=== PATIENT | male | born 1960 | race Caucasian/White ===

== ENCOUNTER → 2016-09-08 | Outpatient (CLI) | payer BC ==
[2016-09-08 14:45] VITALS: BP 125/78; PULSE 75; RESP 16; TEMP 97.8
--- NOTE | 2016-09-08 15:05 | P.PN ---
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 Patient underwent R SGB several months ago, which provided some relief for 6-7 weeks' interval apiece. Patient continues on Ace medications for pain from Dr. Hernández with good relief. Patient denies adverse drug effects from medications. Today, pt denies new-onset weakness, bowel/bladder incontinence, or any other signs or symptoms of cauda equina syndrome. There are no signs of acute intoxication, and no indications of medication diversion or overuse. In addition to above, 13-point review of systems is also negative for chest pain , shortness of breath, changes in vision, changes in hearing, new onset weakness , abdominal pain, diarrhea, extreme fatigue, malaise, fever, skin changes, homicidal or suicidal ideation, or bowel or bladder incontinence. Vital Signs: Reviewed in EMR Gen: WDWN, AAOx3, NAD HEENT: NCAT, EOMI, hearing grossly normal Pulm: resp unlabored Abd: soft, NT, ND Neck: supple, trachea midline Upper extremity: decreased sustainability officer strength; allodynia and hyperalgesia RUE Neuro: CN II-XII grossly intact, muscle strength lower extremities PRESERVED Imaging: Reviewed in EMR Assessment: 1. RUE CRPS 2. chronic pain syndrome 3. cervical radiculopathy Plan: 1. Explanation: Opioid and psychological risk scores were reviewed. Diagnoses , prognoses, and multiple treatment options including but not limited to physical therapy, interventional therapies, adjuvant medical therapies, narcotic medication therapies, and surgery were discussed with the patient and all questions were answered to the patient's satisfaction. 2. Opioid agreement: no opioids prescribed today 3. Counseling: The patient was counseled extensively on BODY MASS INDEX, EXERCISE. Specifically, the patient was instructed regarding the importance of weight control and exercise in the context of both chronic pain and overall health. 4. Procedures: R stellate ganglion block (U/S vs. fluoro) 5. Consultations: None 6. Investigations: None 7. Medications: none prescribed 8. Disposition: f/u for procedure as scheduled PQRS measures: 1-Patient's medications are documented in the chart. 2-Tobacco use is negative 3-Patient has not had a pneumococcal vaccine. 4-Advanced care planning discussed, patient unable to give. 5-Opioid contract NOT signed with the patient. 6-Pain positive, follow-up visit or procedure scheduled 7-Patient's blood pressure measured and documented, and patient will follow up with the primary care due to hypertension. 8-Patient's weight was measured, and body mass index ABOVE the normal limits, and counseling was done. Patient instructed to follow up with PCP. 9-Patient WAS NOT identified as an unhealthy alcohol user.
== END ==
LOC: PNWHC3 14:25
PROVIDERS: ATTEND Anesthesiology
DX: M79.601 Pain in right arm (principal); G90.511 Complex regional pain syndrome I of right upper limb; G89.4 Chronic pain syndrome; M54.12 Radiculopathy, cervical region; Z79.891 Long term (current) use of opiate analgesic
CPT/HCPCS: 99211

== ENCOUNTER 2016-10-14 07:23 | Day surgery (SDC) | payer BC ==
[2016-10-10 12:45] VITALS: BMI 27.2
[2016-10-14] MEDS ORDERED: LIDOCAINE 1% 20 ML VIAL (10MG/ML) FOR IV START INTRADERMA ONE (07:50)
[2016-10-14 08:00] VITALS: TEMP 97.7
[2016-10-14] MEDS ORDERED: LACTATED RINGERS 1,000 ML IV SCH (08:00)
[2016-10-14] MEDS ORDERED: LACTATED RINGERS 1,000 ML IV ONE ×2 (08:00→08:30)
[2016-10-14] MEDS ORDERED: TRIAMCINOLONE ACETONIDE 40 MG/ML 1 ML VIAL ONE (08:00)
[2016-10-14] MEDS ORDERED: BUPIVACAINE (PF) 0.5% 30 ML VIAL ONE (08:00)
--- NOTE | 2016-10-14 08:45 | P.PCN ---
Date of Procedure: 10/14/16 Preoperative Diagnosis: Postoperative Diagnosis: Procedure(s) Performed: Implants: Surgeon: Frederick Gaming Pathology: none sent Condition: stable Disposition: PACU Indications for Procedure: Operative Findings: Description of Procedure: PROCEDURES: Right Stellate ganglion block with ultrasound guidance. PREOPERATIVE DIAGNOSIS: 1- RUE CRPS (type I) POSTOPERATIVE DIAGNOSIS: Same ANESTHESIA: 1% lidocaine plain EBL: None. COMPLICATIONS: None. INDICATION: The patient presents long history of signs and symptoms suggestive of CRPS of the right arm, presents today for repeat stellate ganglion block, #1 in this series. Patient has had good relief from these procedures in the past. Off Plavix x 8 days with documentation from primary care physician. PROCEDURE DESCRIPTION: The patient was seen and identified in the preoperative area. Risks, benefits, complications, and alternatives were discussed with the patient, with risks including but not limited to hoarseness, local anesthetic toxicity, bleeding, infection, nerve damage, allergic reactions to medications, and incomplete pain relief. The patient agreed to proceed with the procedure and signed the informed consent after all questions were answered.. IV was started and vital signs were stable. Patient was brought to the procedure room and placed in the supine position with a shoulder roll to improve extension of the neck. Cervical area anteriorly was prepped and draped in the usual sterile fashion with focus on the right side of the neck. Using a linear ultrasound probe and sterile cover, the thyroid gland and carotid artery were identified, as was the vertebral artery. The ultrasound was moved cephalad until the vertebral artery was seen traveling medially. Depth was changed to identify the Chassaignac's tubercle medial and deep to the carotid artery, signifying the C6 level. After in-plane localization with 3 ml of 1% lidocaine plain, a 22-gauge 2-inch Stimuplex needle was directed between the thyroid and carotid artery and directed onto the Ch[place]ac's tubercle and slightly withdrawn. After negative aspiration for CSF or blood and in the absence of paresthesias, solution was injected incrementally with frequent aspiration into the longus colli muscle. Block solution contained 9 mL of 0.55% Bupivacaine preservative free and Kenalog 40mg. Needle was removed intact, skin was cleansed, and bandages were applied. COMPLICATIONS: None. The patient tolerated the procedure well without complications and had >80% pain relief immediately after the procedure, along with warmth in his right upper extremity. After re-examination, he was discharged home after the procedure after he met all discharge criteria. He was instructed not to eat before 4 hours postprocedure. He will follow up for a second SGB in approximately 4-6 weeks.
[2016-10-14 09:31] VITALS: BP 128/91; PULSE 69; RESP 18
== END 2016-10-14 09:23 | disposition home or self-care (01) ==
LOC: ORPAIN 07:23
PROVIDERS: ATTEND Anesthesiology
DX: G90.511 Complex regional pain syndrome I of right upper limb (principal); Z79.02 Long term (current) use of antithrombotics/antiplatelets
CPT/HCPCS: 64510; J3301

== ENCOUNTER 2016-11-12 06:15 | Day surgery (SDC) | payer BC ==
[2016-11-06 15:50] VITALS: BMI 27.1
[2016-11-12 06:47] VITALS: TEMP 97.8
[2016-11-12] MEDS ORDERED: LIDOCAINE 1% 20 ML VIAL (10MG/ML) FOR IV START INTRADERMA ONE (06:47)
[2016-11-12] MEDS ORDERED: LACTATED RINGERS 1,000 ML IV ONE (06:47)
[2016-11-12] MEDS ORDERED: LACTATED RINGERS 1,000 ML IV SCH (07:15)
[2016-11-12] MEDS ORDERED: IV FLUID CONTINUATION 1,000 ML IV ONE (07:40)
--- NOTE | 2016-11-12 07:40 | P.PCN ---
Date of Procedure: 11/12/16 Preoperative Diagnosis: Postoperative Diagnosis: Procedure(s) Performed: Implants: Surgeon: Frederick Gaming Pathology: none sent Condition: stable Disposition: PACU Indications for Procedure: Operative Findings: Description of Procedure: PROCEDURES: Right Stellate ganglion block with ultrasound guidance. PREOPERATIVE DIAGNOSIS: 1- RUE CRPS (type I) POSTOPERATIVE DIAGNOSIS: Same ANESTHESIA: 1% lidocaine plain; conscious sedation with Versed/fentanyl EBL: None. COMPLICATIONS: None. INDICATION: The patient presents long history of signs and symptoms suggestive of CRPS of the right arm, presents today for repeat stellate ganglion block, #1 in this series. Patient has had good relief from these procedures in the past and had three weeks' excellent relief with first procedure done in October. Off Plavix x 7 days with documentation from primary care physician. PROCEDURE DESCRIPTION: The patient was seen and identified in the preoperative area. Risks, benefits, complications, and alternatives were discussed with the patient, with risks including but not limited to hoarseness, local anesthetic toxicity, bleeding, infection, nerve damage, allergic reactions to medications, and incomplete pain relief. The patient agreed to proceed with the procedure and signed the informed consent after all questions were answered. IV was started and vital signs were stable. Patient was brought to the procedure room and placed in the supine position with a shoulder roll to improve extension of the neck. Cervical area anteriorly was prepped and draped in the usual sterile fashion with focus on the right side of the neck. Using a linear ultrasound probe and sterile cover, the thyroid gland and carotid artery were identified, as was the vertebral artery. The ultrasound was moved cephalad until the vertebral artery was seen traveling medially. Depth was changed to identify the Chassaignac's tubercle medial and deep to the carotid artery, signifying the C6 level. After in-plane localization with 3 ml of 1% lidocaine plain, a 22-gauge 2-inch Stimuplex needle was directed between the thyroid and carotid artery and directed onto the Chassaignac's tubercle and slightly withdrawn. After negative aspiration for CSF or blood and in the absence of paresthesias, solution was injected incrementally with frequent aspiration into the longus colli muscle. Block solution contained 9 mL of 0.5% Bupivacaine preservative free and Kenalog 40mg. Needle was removed intact, skin was cleansed, and bandages were applied. COMPLICATIONS: None. The patient tolerated the procedure well without complications and had >80% pain relief immediately after the procedure, along with warmth in his right upper extremity. After re-examination, he was discharged home after the procedure after he met all discharge criteria. He was instructed not to eat before 4 hours postprocedure. He will follow up for a third SGB in approximately 4-6 weeks.
[2016-11-12 07:49] VITALS: RESP 18
[2016-11-12 07:57] VITALS: BP 140/87; PULSE 65
== END 2016-11-12 08:20 | disposition home or self-care (01) ==
LOC: ORPAIN 06:15
PROVIDERS: ATTEND Anesthesiology
DX: G90.511 Complex regional pain syndrome I of right upper limb (principal); Z95.5 Presence of coronary angioplasty implant and graft; Z79.02 Long term (current) use of antithrombotics/antiplatelets; F17.200 Nicotine dependence, unspecified, uncomplicated
CPT/HCPCS: 64510; 99152; 99153; J2250; J3301; J3010

== ENCOUNTER 2016-12-10 08:17 | Day surgery (SDC) | payer BC ==
[2016-12-04 10:10] VITALS: BMI 27.2
[~2016-12-10 08:17] MED LIST: LACTATED RINGERS 1,000 ML IV ONE
[2016-12-10 08:44] VITALS: TEMP 98.1
[2016-12-10] MEDS ORDERED: LIDOCAINE 1% 20 ML VIAL (10MG/ML) FOR IV START INTRADERMA ONE (08:55)
--- NOTE | 2016-12-10 10:19 | P.PCN ---
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 Patient has had good relief from these procedures in the past and had three weeks' excellent relief with first procedure done in October. Off Plavix x 7 days with documentation from primary care physician. PROCEDURE DESCRIPTION: The patient was seen and identified in the preoperative area. Risks, benefits, complications, and alternatives were discussed with the patient, with risks including but not limited to hoarseness, local anesthetic toxicity, bleeding, infection, nerve damage, allergic reactions to medications, and incomplete pain relief. The patient agreed to proceed with the procedure and signed the informed consent after all questions were answered. IV was started and vital signs were stable. Patient was brought to the procedure room and placed in the supine position with a shoulder roll to improve extension of the neck. Cervical area anteriorly was prepped and draped in the usual sterile fashion with focus on the right side of the neck. Using a linear ultrasound probe and sterile cover, the thyroid gland and carotid artery were identified, as was the vertebral artery. The ultrasound was moved cephalad until the vertebral artery was seen traveling medially. Depth was changed to identify the Chassaignac's tubercle medial and deep to the carotid artery, signifying the C6 level. After in-plane localization with 3 ml of 1% lidocaine plain, a 25-gauge 3.5 inch quincke spinal needle was directed between the thyroid and carotid artery and directed onto the Chassaignac's tubercle and slightly withdrawn. After negative aspiration for CSF or blood and in the absence of paresthesias, solution was injected incrementally with frequent aspiration anterior to the longus colli muscle. Block solution contained 9 mL of 0.25% Bupivacaine preservative free and dexamethasone 10 mg. Needle was removed intact, skin was cleansed, and bandages were applied. COMPLICATIONS: None.
[2016-12-10] MEDS ORDERED: IV FLUID CONTINUATION 1,000 ML IV ONE (10:27)
[2016-12-10 10:35] VITALS: RESP 16
[2016-12-10 11:22] VITALS: BP 145/83; PULSE 73
== END 2016-12-10 11:11 | disposition home or self-care (01) ==
LOC: ORPAIN 08:17
PROVIDERS: ATTEND Anesthesiology
DX: I73.00 Raynaud's syndrome without gangrene (principal); G90.511 Complex regional pain syndrome I of right upper limb; I10 Essential (primary) hypertension; Z79.02 Long term (current) use of antithrombotics/antiplatelets
CPT/HCPCS: 64510; 99152; 99153; J2250; J1100; J3010

== ENCOUNTER 2017-04-30 09:32 | Day surgery (SDC) | payer BC ==
[2017-04-24 13:40] VITALS: BMI 27.9
[2017-04-30 09:51] VITALS: TEMP 97.3
[2017-04-30] MEDS ORDERED: LACTATED RINGERS 1,000 ML IV ONE (09:52)
[2017-04-30] MEDS ORDERED: LIDOCAINE 1% 20 ML VIAL (10MG/ML) FOR IV START INTRADERMA ONE (09:53)
[2017-04-30] MEDS ORDERED: IV FLUID CONTINUATION 1,000 ML IV ONE (10:32)
[2017-04-30 10:45] VITALS: BP 111/74; PULSE 66; RESP 16
--- NOTE | 2017-05-01 11:28 | P.PCN ---
Date of Procedure: 04/30/17 Surgeon: Frederick Gaming Pathology: none sent Condition: stable Disposition: PACU Description of Procedure: PROCEDURES: Right Stellate ganglion block with ultrasound guidance. PREOPERATIVE DIAGNOSIS: 1- RUE CRPS (type I) POSTOPERATIVE DIAGNOSIS: Same ANESTHESIA: 1% lidocaine plain; conscious sedation with Versed/fentanyl EBL: None. COMPLICATIONS: None. INDICATION: The patient presents long history of signs and symptoms suggestive of CRPS of the right arm, presents today for repeat stellate ganglion block, #1 in this series. Patient has had good relief from these procedures in the past and had several months' relief with each series of procedures. Off Plavix x 7 days with documentation from primary care physician. PROCEDURE DESCRIPTION: The patient was seen and identified in the preoperative area. Risks, benefits, complications, and alternatives were discussed with the patient, with risks including but not limited to hoarseness, local anesthetic toxicity, bleeding, infection, nerve damage, allergic reactions to medications, and incomplete pain relief. The patient agreed to proceed with the procedure and signed the informed consent after all questions were answered. IV was started and vital signs were stable. Patient was brought to the procedure room and placed in the supine position with a shoulder roll to improve extension of the neck. Cervical area anteriorly was prepped and draped in the usual sterile fashion with focus on the right side of the neck. Using a linear ultrasound probe and sterile cover, the thyroid gland and carotid artery were identified, as was the vertebral artery. The ultrasound was moved cephalad until the vertebral artery was seen traveling medially. Depth was changed to identify the Chassaignac's tubercle medial and deep to the carotid artery, signifying the C6 level. After in-plane localization with 3 ml of 1% lidocaine plain, a 22-gauge 2-inch Stimuplex needle was directed between the thyroid and carotid artery and directed onto the Chassaignac's tubercle and slightly withdrawn. After negative aspiration for CSF or blood and in the absence of paresthesias, solution was injected incrementally with frequent aspiration into the longus colli muscle. Block solution contained 9 mL of 0.5% Bupivacaine preservative free and Kenalog 40mg. Needle was removed intact, skin was cleansed, and bandages were applied. COMPLICATIONS: None. The patient tolerated the procedure well without complications and had >80% pain relief immediately after the procedure, along with warmth in his right upper extremity. After re-examination, he was discharged home after the procedure after he met all discharge criteria. He was instructed not to eat before 4 hours postprocedure. He will follow up for a second SGB in approximately 4-6 weeks.
== END 2017-04-30 10:59 | disposition home or self-care (01) ==
LOC: ORPAIN 09:32
PROVIDERS: ATTEND Anesthesiology
DX: G90.511 Complex regional pain syndrome I of right upper limb (principal); Z79.02 Long term (current) use of antithrombotics/antiplatelets; Z95.5 Presence of coronary angioplasty implant and graft
CPT/HCPCS: 64510; J2250; J3301; J3010; 99152

== ENCOUNTER 2017-06-25 07:59 | Day surgery (SDC) | payer BC ==
[2017-06-23 11:26] VITALS: BMI 29.1
[~2017-06-25 07:59] MED LIST changes: -LACTATED RINGERS 1,000 ML IV ONE; +LACTATED RINGERS 1,000 ML IV SCH
[2017-06-25] MEDS ORDERED: LIDOCAINE 1% 20 ML VIAL (10MG/ML) FOR IV START INTRADERMA ONE (08:40)
[2017-06-25 08:41] VITALS: TEMP 98.7
--- NOTE | 2017-06-25 09:40 | P.PCN ---
Date of Procedure: 06/25/17 Procedure(s) Performed: PROCEDURES: Right Stellate ganglion block under fluoroscopy guidance PREOPERATIVE DIAGNOSIS: 1-Raynoud syndrome 2- CRPS I upper extremities POSTOPERATIVE DIAGNOSIS: Same ANESTHESIA: Moderate sedation with intravenous Versed 2 mg and Fentanyl 100 Mcg EBL: None. COMPLICATIONS: None. INDICATION: The patient presents with H&N cancer and symptoms suggestive of CRPS of the right arm here for diagnostic block PROCEDURE DESCRIPTION: The patient was seen and identified in the preoperative area. Risks, benefits, complications, and alternatives were discussed with the patient. The patient agreed to pursue with the procedure and signed the consent. IV was started and vital signs were stable. Critical pause was taken. Cervical area anteriorly was prepped and draped in the usual sterile fashion. The cricothyroid membrane was identified and the carotid artery was palpated and swept laterally to identify the Chassaignac's tubercle medial to the carotid artery. Fluoroscopy was used to identify the Chassaignac's tubercle at the anterior body of the C6 vertebra. A 22-gauge 3-1/2- inch needle was pierced the skin and directed onto the Chassaignac's tubercle. The final position of the needle was verified by fluoroscopy. After negative aspiration of CSF and blood, solution was injected incrementally with frequent aspiration. Block solution containing 8 mL of 0.5% Bupivacaine preservative free and Kenalog 40mg. The area was cleansed and bandages were applied. The patient tolerated the procedure well without complications and was discharged home after the procedure after he met discharge criteria. He was instructed not to eat before 4 hours postprocedure.
[2017-06-25] MEDS ORDERED: IV FLUID CONTINUATION 1,000 ML IV ONE ×2 (09:42)
[2017-06-25 10:12] VITALS: BP 122/83; PULSE 61; RESP 20
--- NOTE | 2017-06-25 13:07 | FL ---
Fluoroscopy HISTORY: Pain 14 seconds fluoroscopy time supplied to the referring clinician. 1 intraoperative C-arm images docum ent the procedure. See dictated report from anesthesia.
== END 2017-06-25 10:26 | disposition home or self-care (01) ==
LOC: ORPAIN 07:59
PROVIDERS: ATTEND Specialist
DX: G90.511 Complex regional pain syndrome I of right upper limb (principal); I73.00 Raynaud's syndrome without gangrene; I10 Essential (primary) hypertension; Z79.02 Long term (current) use of antithrombotics/antiplatelets
CPT/HCPCS: 64510; J2250; J1030; Q9965; 99152

== ENCOUNTER 2017-09-14 09:24 | Day surgery (SDC) | payer BC ==
[2017-09-09 12:10] VITALS: BMI 28.7
[2017-09-14 09:52] VITALS: RESP 16; TEMP 97.7
[2017-09-14] MEDS ORDERED: LIDOCAINE 1% 20 ML VIAL (10MG/ML) FOR IV START INTRADERMA ONE (10:01)
--- NOTE | 2017-09-14 11:06 | P.PCN ---
Date of Procedure: 09/14/17 Surgeon: Allie Retana Pathology: none sent Condition: stable Disposition: PACU Description of Procedure: PROCEDURES: Right Stellate ganglion block with ultrasound guidance. PREOPERATIVE DIAGNOSIS: 1- RUE CRPS (type I) POSTOPERATIVE DIAGNOSIS: Same ANESTHESIA: 1% lidocaine plain; conscious sedation with Versed and fentanyl EBL: None. COMPLICATIONS: None. INDICATION: The patient presents long history of signs and symptoms suggestive of CRPS of the right arm, presents today for right stellate ganglion block, #1 in this series. Patient has had inability to do physical therapy due to pain and presents for SGB today. No use of blood thinners. PROCEDURE DESCRIPTION: The patient was seen and identified in the preoperative area. Risks, benefits, complications, and alternatives were discussed with the patient, with risks including but not limited to hoarseness, local anesthetic toxicity, bleeding, infection, nerve damage, allergic reactions to medications, and incomplete pain relief. The patient agreed to proceed with the procedure and signed the informed consent after all questions were answered. IV was started and vital signs were stable. Patient was brought to the procedure room and placed in the supine position with a shoulder roll to improve extension of the neck. Cervical area anteriorly was prepped and draped in the usual sterile fashion with focus on the right side of the neck. Using a linear ultrasound probe and sterile cover, the thyroid gland and carotid artery were identified, as was the vertebral artery. The ultrasound was moved cephalad to identify the Chassaignac 's tubercle . signifying the C6 level. Then the probe was moved caudad to C7 level. After in-plane localization with 2 ml of 1% lidocaine plain, a 21 gauge 100 mm sonoplex needle was directed behind the carotid artery and anterior to the longus coli muscle. After negative aspiration for CSF or blood and in the absence of paresthesias, solution was injected incrementally with frequent aspiration anterior to the longus colli muscle. Block solution contained 4 mL of 0.5% ropivacaine preservative free and Decadron 10 mg. Needle was removed intact, skin was cleansed, and bandages were applied. COMPLICATIONS: None. The patient tolerated the procedure well without complications and had excellent pain relief immediately after the procedure, along with warmth in his right upper extremity. After re-examination, she was discharged home after the procedure after he met all discharge criteria. She was instructed not to eat before 4 hours postprocedure. She will go to physical therapy today and will be seen in the clinic in a few weeks.
[2017-09-14] MEDS ORDERED: IV FLUID CONTINUATION 1,000 ML IV ONE (11:12)
[2017-09-14 11:47] VITALS: BP 127/81; PULSE 68
== END 2017-09-14 12:14 | disposition home or self-care (01) ==
LOC: ORPAIN 09:24
PROVIDERS: ATTEND Anesthesiology
DX: G90.511 Complex regional pain syndrome I of right upper limb (principal); M50.30 Other cervical disc degeneration, unspecified cervical region; I10 Essential (primary) hypertension; Z79.02 Long term (current) use of antithrombotics/antiplatelets
CPT/HCPCS: 64510; J2250; J1100; J3010; 99152

== ENCOUNTER → 2022-03-04 | Outpatient (CLI) | payer BC | END | disposition home or self-care (01) | LOC: RADMRIMAIN 14:36 | PROVIDERS: ATTEND Physician Assistant | DX: Z53.9 Procedure and treatment not carried out, unspecified reason (principal) ==

== ENCOUNTER → 2023-07-23 | Outpatient (CLI) | payer BC ==
--- NOTE | 2023-07-25 14:50 | CT ---
EXAMINATION TYPE: CT sinus wo con CT DLP: 619 mGycm, Automated exposure control for dose reduction was used. DATE OF EXAM: 07/23/2023 5:52 PM COMPARISON: None. CLINICAL INDICATION:Male, 63 years old with history of J32.0 CHRONIC MAXILLARY SINUSITIS; , CHRONIC M AXILLARY SINUSITIS. pt has hx of breaking nose back in the 80s TECHNIQUE: Multiple thin axial images were obtained through the paranasal sinuses without the use of IV contrast. Additional coronal and sagittal reformatted images were submitted for evaluation. Contrast used: none Oral contrast used: none FINDINGS: Frontal sinuses: Normally developed and aerated. Frontal Recess: Clear Maxillary Sinuses: Normally developed. Partially septated on the right without significant mucosal th ickening or fluid. On the left, there is moderate peripheral mucosal thickening with a 4.8 x 3.9 mm a ssociated radiodensity suggesting calcification or concretion. Maxillary Infundibula(OMC): OMC is patent on the right, mildly narrowed with Marisa air cell present. Left OMC appears mildly lucero rowed by soft tissue and a Marisa air cell is suggested. Ethmoid sinuses: Normally developed and aerated. Ethmoidal notch: Protected and abutting the lateral lamina. Sphenoid sinuses: Normally developed and aerated. There is complete sellar sphenoid sinus pneumatizat ion without evidence of dehiscence. No dehiscence of carotid canal. No evidence of optic nerve dehis cence within the sphenoid sinus. Sphenoethmoidal recesses: Clear. Nasal septum: Mild S-shaped nasal septal deviation, towards the right inferiorly anteriorly, and towa rds the left further posteriorly with moderate sized spur extending between the inferior middle turbi nates.. Nasal Turbinates: Within normal limits. A piter bullosa defect is seen involving the right middle tu rbinate. Mastoid air cells & middle ears: The air cells are clear. The middle ears are grossly unremarkable. Modified Soft tissues & Brain: Partially seen without gross abnormality. Globes are intact. Other: Cribriform plate demonstrates symmetric Keros classification type 2 cribriform plate. No evidence of bony dehiscence of skull base. Lamina papyracea is intact without evidence of remote orbital fracture or orbital prolapse into the e thmoid sinus. Mild nasal bones deformity likely sequela of remote trauma. IMPRESSION: 1. Right maxillary sinus partially septated without significant mucosal thickening or fluid. 2. OMC is patent on the right, mildly narrowed with Marisa air cell present. 3. Left maxillary sinus shows moderate peripheral mucosal thickening with a 4.8 x 3.9 mm associated radiodensity suggesting calcification or concretion. Left OMC appears mildly narrowed by soft tissue and a Marisa air cell is suggested. 4. Nasal septal deviation as described. Piter bullosa on the right.
== END | disposition home or self-care (01) ==
LOC: RADCTMAIN 17:12
PROVIDERS: ATTEND Otolaryngology
DX: J32.0 Chronic maxillary sinusitis (principal); J34.2 Deviated nasal septum; J34.89 Other specified disorders of nose and nasal sinuses
CPT/HCPCS: 70486